=== PATIENT | female | born 1990 | race African-American/Black ===

== ENCOUNTER 2018-02-28 12:10 | Emergency (ER) | payer MEDICAID ==
[~2018-02-28] VITALS: Ht 170.2 cm; Wt 81.6 kg
[2018-02-28] MEDS ORDERED: LORazepam 1mg tab ORAL ONE (12:15)
--- NOTE | 2018-02-28 12:36 | Emergency Room Report ---
History of Present Illness General Chief Complaint: Chest Pain Source: EMS Present Illness HPI 28-year-old female presents to the emergency department complaining of 9 out of 10 in severity pain in the left arm with tenderness to palpation and intermittent numbness sensation for approximately 3 hours. Patient also reports having some chest pain this morning when she was outside doing some errands. Patient denies strenuous activities other than taking care of her-2- year-old son. Patient denies past medical history. She denies cough, shortness of breath, recent travel or long periods of being sedentary. Patient denies claudication. She reports family history of her grandmother who at age of 78 from a heart attack. Pt.reports she is not sure if she may be since she has been trying. Denies Asthma/COPD, Palpitations, LOC, AMS , dizziness, Changes in Vision,, or a sudden severe headache. Allergies: Coded Allergies: No Known Allergies (Unverified , 02/28/18) Patient History Past Medical History: see triage record Past Surgical History: none Pertinent Family History: none Reviewed Nursing Documentation: PMH: Agreed; PSxH: Agreed Nursing Documentation-PMH Past Medical History: No Stated History Review of Systems All Other Systems: negative except mentioned in HPI Physical Exam Vital Signs Date Time Temp Pulse Resp B/P (MAP) Pulse Ox O2 Delivery O2 Flow Rate FiO2 02/28/18 11:55 99.0 81 18 126/87 99 Room Air 99.0 Sp02 EP Interpretation: reviewed, normal General Appearance: no apparent distress, alert, GCS 15, non-toxic Head: normocephalic, atraumatic ENT: hearing grossly normal, normal voice Neck: full range of motion Respiratory: chest non-tender, lungs clear, normal breath sounds, no respiratory distress, no wheezing, speaking full sentences Cardiovascular #1: regular rate, rhythm, no edema, normal capillary refill Cardiovascular #2: 2+ radial (R), 2+ radial (L) Musculoskeletal: back normal, gait/station normal, normal range of motion, tender - TTP to the Left shoulder, left biceps, brachioradialis and the left sided neck musculature. FROM with pain. no obvious deformity, no bony ttp. Neurologic: alert, oriented x3, responsive, motor strength/tone normal, sensory intact, speech normal, grossly normal Psychiatric: judgement/insight normal Skin: normal color, no rash, warm/dry, well hydrated Lymphatic: no adenopathy Medical Decision Making PA Attestation Dr. Farah is my supervising Physician whom patient management has been discussed with. Diagnostic Impression: Primary Impression: Shoulder pain, acute Qualified Codes: M25.512 - Pain in left shoulder Additional Impression: Nonspecific chest pain ER Course 28-year-old female presents to the emergency department complaining of 9 out of 10 in severity pain in the left arm with tenderness to palpation and intermittent numbness sensation for approximately 3 hours. Patient also reports having some chest pain this morning when she was outside doing some errands. Patient denies strenuous activities other than taking care of her-2- year-old son. Patient denies past medical history. She denies cough, shortness of breath, recent travel or long periods of being sedentary. Patient denies claudication. She reports family history of her grandmother who at age of 78 from a heart attack. Pt.reports she is not sure if she may be since she has been trying. Denies Asthma/COPD, Palpitations, LOC, AMS , dizziness, Changes in Vision,, or a sudden severe headache. Ddx considered but are not limited to [place], pneumonia, contusion, costochondritis , PE, ACS, Shoulder strain, Chest wall contusion. aortic dissection, tendonitis , muscle strain just to name a few. Vital signs: are WNL, pt. is afebrile H&PE are most consistent with musculoskeletal cause for pain, significantly reproducible upon palpation ORDERS: - EK NSR CXR: unremarkable -Shoulder x-ray 3 views: unremarkable -Urine HCG:Negative ED INTERVENTIONS: - PT. placed on cardiac monitoring. -Toradol 15mg -Ativan 1mg PO -Pt. reports her symptoms have subsided. d/w pt. the results of her imaging and . pt. was a bit tearful about negative as she reports she has bee trying for almost a year, recommended pt. follow up with her OBGYN for fertility evaluation. Regarding her left shoulder pain: d/w pt. conservative treatment, and to follow up with a primary care provider. pt given a list of primary care clinics for follow up. d/w pt. to return to the ED with worsening or new symptoms. DISCHARGE: At this time pt. is stable for d/c to home. Will provide printed patient care instructions, and any necessary prescriptions. Care plan and follow up instructions have been discussed with the patient prior to discharge. Labs Test 02/28/18 12:28 Urine HCG, Qualitative Negative (NEGATIVE) EKG Diagnostic Results Rate: normal - 78 BPM Rhythm: NSR ST Segments: no acute changes ASA given to the pt in ED: No PA Scribe Text This Interpretation was scribed by ALBIN Salcedo. Chest X-Ray Diagnostic Results Chest X-Ray Diagnostic Results : Chest X-Ray Ordered: Yes # of Views/Limited/Complete: 1 View Indication: Chest Pain EP Interpretation: Yes PA Xray: Interpretation reviewed, by supervising MD, and agrees with findings. Interpretation: no consolidation, no effusion, no pneumothorax, no acute cardiopulmonary disease Impression: No acute disease Electronically Signed by: Maggie Salcedo PA-C Other X-Ray Diagnostic Results Other X-Ray Diagnostic Results : X-Ray ordered: Left Shoulder # of Views/Limited Vs Complete: 3 View Indication: Pain EP Interpretation: Yes PA Xray: Interpretation reviewed, by supervising MD, and agrees with findings. Interpretation: no dislocation, no soft tissue swelling, no fractures Impression: No acute disease Electronically Signed by: Maggie Salcedo PA-C Last Vital Signs Date Time Temp Pulse Resp B/P (MAP) Pulse Ox O2 Delivery O2 Flow Rate FiO2 02/28/18 11:55 99.0 81 18 126/87 99 Room Air 99.0 Disposition: HOME, SELF-CARE Condition: Stable Scripts Ibuprofen* (MOTRIN*) 600 Mg Tablet 600 MG ORAL THREE TIMES A DAY, #21 TAB 0 Refills Prov: Maggie Salcedo P.A. 02/28/18 Methocarbamol* (ROBAXIN*) 500 Mg Tablet 1000 MG PO TID, #42 TAB 0 Refills Prov: Maggie Salcedo P.A. 02/28/18 Patient Instructions: Nonspecific Chest Pain, [id number], Paresthesia, Easy- to-Read, Shoulder Pain, [id number] Additional Instructions: Take medications as directed. Follow up with a Primary Care Provider in 3-5 days, even if your symptoms have resolved. --Please review list of primary care clinics, if you do not already have a primary care provider Return sooner to ED if new symptoms occur, or current symptoms become worse. Do not drink alcohol, drive, or operate heavy machinery while taking Muscle Relaxer as this may cause drowsiness. - Please note that this Emergency Department Report was dictated using [employer] support associate technology software, occasionally this can lead to erroneous entry secondary to interpretation by the dictation equipment. Maggie Salcedo Feb 28, 2018 12:36
[2018-02-28] MEDS ORDERED: Ketorolac 30mg Inj IV ONE (12:45)
[2018-02-28 12:59] VITALS: BP 126/87
[2018-02-28] MEDS ORDERED: ROBAXIN500 MG PO (13:06)
[2018-02-28] MEDS ORDERED: IBUPROFEN600 MG ORAL (13:06)
[2018-02-28 13:31] VITALS: BP 126/87
--- NOTE | 2018-02-28 17:06 | Diagnostic Imaging Report ---
Indication: Left shoulder pain Technique: 3 views of the left shoulder Comparison: none Findings: No acute fractures. No dislocations. The joint spaces are preserved Impression: Negative
--- NOTE | 2018-02-28 17:09 | Diagnostic Imaging Report ---
Indication: Chest pain Technique: One view of the chest Comparison: none Findings: Lungs and pleural spaces are clear. Heart size is normal Impression: No acute process
--- NOTE | 2018-03-03 21:31 | Cardiology Report ---
APPROVED REPORT EKG Measurement Heart [id number] Normal sinus rhythm Normal ECG
== END 2018-02-28 13:33 | disposition home or self-care (01) ==
LOC: EDBD 12:10 → EMR 12:45
DX: M25.512 Pain in left shoulder (principal); R07.89 Other chest pain
CPT/HCPCS: 71045; 73030; 81025; 93005; 96374; 99284; J1885

== ENCOUNTER 2018-11-18 22:28 | Emergency (ER) | payer MEDICAID ==
[~2018-11-18] VITALS: Ht 165.1 cm; Wt 72.6 kg
[~2018-11-18 22:28] MED LIST: IBUPROFEN600 MG ORAL; ROBAXIN500 MG PO
[2018-11-18] MEDS ORDERED: NKM (22:29)
[2018-11-18 22:30] VITALS: BP 142/95
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
[2018-11-18] MEDS ORDERED: Norco 5mg/325mg tab ORAL ONE (23:15)
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
--- NOTE | 2018-11-19 00:52 | Diagnostic Imaging Report ---
EXAM: CT Head Without Intravenous Contrast CLINICAL HISTORY: TRAUMA TECHNIQUE: Axial computed tomography images of the head/brain without intravenous contrast. CTDI is 0.15, 70.38 mGy and DLP is 1266 mGy-cm. One or more of the following dose reduction techniques were used: automated exposure control, adjustment of the mA and/or kV according to patient size, use of iterative reconstruction technique. COMPARISON: No relevant prior studies available. FINDINGS: Brain: No acute infarct, hemorrhage, mass or edema. No significant white matter disease. Ventricles: Unremarkable. No ventriculomegaly. Bones/joints: No acute osseous normality. Soft tissues: Unremarkable. Sinuses: Sinuses are patent. Mastoid air cells: Unremarkable as visualized. No mastoid effusion. IMPRESSION: No acute findings.
[2018-11-19] MEDS ORDERED: IBUPROFEN600 MG ORAL (00:53)
[2018-11-19 00:55] VITALS: BP 135/88
--- NOTE | 2018-11-19 00:55 | NUR ---
ED Nurse Note: patient is being discharged from ED after being cleared by ERMD, patient is alert and oriented x4, ambulatory with a steady gait, VSS. patient acknowledges the need to follow up with PMd or a clinic within 3-5 days, patient was advised to return if symptoms worsen, patient's prescriptions in hand, ID band and IV line removed
== END 2018-11-19 00:55 | disposition home or self-care (01) ==
LOC: EDBD 22:28 → EMR 23:27
DX: S09.90XA Unspecified injury of head, initial encounter (principal); F10.929 Alcohol use, unspecified with intoxication, unspecified; S01.01XA Laceration without foreign body of scalp, initial encounter; X58.XXXA Exposure to other specified factors, initial encounter; Y92.9 Unspecified place or not applicable
CPT/HCPCS: 12002; 70450; 99284; Z7502